=== PATIENT | male | born 1995 | race Caucasian/White ===

== ENCOUNTER 2020-08-12 21:55 | Emergency (ER) | payer MEDICAID ==
[~2020-08-12] VITALS: Ht 177.8 cm; Wt 83.9 kg
[2020-08-12] MEDS ORDERED: DOXYCYCLINE 10100 M2 PO (22:04)
[2020-08-12 22:33] LABS: INFLUENZA A ANTIGEN Negative (Negative); INFLUENZA B ANTIGEN Negative (Negative)
[2020-08-12 23:26] VITALS: BP 132/70
== END 2020-08-12 23:26 | disposition home or self-care (01) ==
LOC: M.ERS 21:55
PROVIDERS: Emergency Medicine
DX: R05 Cough (principal); Z20.828 Contact with and (suspected) exposure to other viral communicable diseases; J02.9 Acute pharyngitis, unspecified; R50.9 Fever, unspecified; Z90.89 Acquired absence of other organs; Z88.1 Allergy status to other antibiotic agents; Z88.0 Allergy status to penicillin; Z88.2 Allergy status to sulfonamides; Z88.8 Allergy status to other drugs, medicaments and biological substances